=== PATIENT | female | born 1950 | race Caucasian/White ===

== ENCOUNTER → 2020-10-22 16:34 | Outpatient (CLI) | payer BC, SELFPAY ==
--- NOTE | 2020-10-22 16:39 | CT_ITS ---
STUDY: RIGHT LOWER EXTREMITY CT SCAN REASON FOR EXAM: Female, 69 years old. UNILATERAL PRIMARY OSTEOARTHRITIS RADIATION DOSAGE (If Supplied By Facility): CTDIvol = ( 18.76 ) mGy, DLP = ( 996.63 ) mGycm. Individualized dose optimization techniques were used for this CT.? TECHNIQUE: Axial multidetector CT scan of the right knee, right hip and right ankle. Coronal and sagittal reformatted images. COMPARISON: None. FINDINGS: No acute fracture line. No acute dislocation. No acute cortical destruction. Mild/moderate right hip osteoarthritis (coronal image 47 series 601) with joint space narrowing and subcortical cyst formation. Mild pubic symphysis arthrosis. Right knee mild medial joint space narrowing. Mild lateral joint space narrowing with 9 mm osteochondral lesion (coronal image 30 series 604) and minimal patellofemoral joint arthrosis. Normal proximal tibiofibular joint. Large volume knee joint effusion. No significant popliteal cyst. Moderate soft tissue swelling at the knee. Posterior joint space calcifications (axial image 260 series 2). Varicose veins. Mild ankle osteoarthritis with lateral talar dome osteochondral lesion (sagittal images 16 through 18 series 607). Visualized intra-abdominal/pelvic contents within normal limits given technique. No acute muscle abnormality. CT/Extremity Lower without Contra IMPRESSION: Right knee osteoarthritis predominating laterally with 9 mm osteochondral lesion Right knee large volume joint effusion and moderate soft tissue swelling Mild/moderate right hip osteoarthritis Mild right ankle osteoarthritis with talar dome osteochondral lesion Electronically Signed: Joey Li DO at 10:21 EDT Tel , Service support ,
== END ==
PROVIDERS: PCP Family Medicine; Referring Provider Physician Assistant; Visit Provider Physician Assistant
DX: M17.11 Unilateral primary osteoarthritis, right knee (principal)
CPT/HCPCS: 73700

== ENCOUNTER → 2020-10-31 15:58 | Outpatient (CLI) | payer BC, SELFPAY ==
--- NOTE | 2020-10-31 15:59 | EKG12_ITS ---
Test Reason : PRE-OP Blood Pressure : / mmHG Vent. Rate : 075 BPM Atrial Rate : 075 BPM P-R Int : 178 ms QRS Dur : 082 ms QT Int : 402 ms P-R-T Axes : 069 047 068 degrees QTc Int : 448 ms Normal sinus rhythm Normal ECG Confirmed by SHERYL KIDD, JU ([id number]), food expeditor ALMA LOPEZ ([id number]) on 11/04/2020 1:31:15 PM Referred By: Evan Shirley Confirmed By:WILL SAUCEDO MD
[2020-10-31 17:17] LABS: Hematocrit 38.7 % (37-47); Hemoglobin 12.4 g/dL (12.0-15.0); Mean Corpuscular Volume 93.7 fL (81-99); Mean Platelet Vol. 11.2 fl (6.2-12.0); Platelet Count 188 K/mm3 (150-450); RBC Distribution Width CV 12.1 % (11.6-14.6); RBC Distribution Width SD 41.9 fl (35.1-43.9); Red Blood Count 4.13 M/mm3 (4.2-5.4); White Blood Count 5.9 K/mm3 (4.4-11.0)
[2020-10-31 18:09] LABS: Anion Gap 5 (5-15); BUN 42 mg/dL (7-18); BUN/Creat Ratio 47.9 RATIO (10-20); Calcium,Total 9.3 mg/dL (8.5-10.1); Chloride 109 mmol/L (98-107); Creatinine, Serum 0.88 mg/dL (0.55-1.02); EST Glomerular Filtration Rate 68 mL/min (>60); Est Glom Filt Rate - Afr Amer 82 mL/min (>60); Glucose 106 mg/dL (74-106); Potassium 4.4 mmol/L (3.5-5.1); Sodium Level 142 mmol/L (136-145)
[2020-10-31 19:24] LABS: Probe Check PASS; Specimen Processing Control PASS
== END ==
PROVIDERS: PCP Family Medicine; Referring Provider Orthopaedic Surgery; Visit Provider Orthopaedic Surgery
DX: Z01.810 Encounter for preprocedural cardiovascular examination (principal); Z01.812 Encounter for preprocedural laboratory examination; Z20.822 Contact with and (suspected) exposure to COVID-19
CPT/HCPCS: 36415; 80048; 85027; 87635; 93005; C9803; U0002

== ENCOUNTER → 2020-11-07 | Outpatient (CLI) | payer BC, SELFPAY ==
--- NOTE | 2020-11-07 | KNEE_PTH ---
PATIENT: IDA DUFFY [facility] U#:[id number] AGE/SX: 69/F ROOM: RE11/07/[address]: Dr. Evan Shirley DO : 1950 BED: DIS: 11/07/2020 SPEC #: [id number] RECD: 11/07/20 14:54 STATUS: EDMUNDO REQ #: [id number] LEXUS: 11/07/20 00:[address]: Evan Shirley DEPT: SURGICAL PATHOLOGY RECD BY: Kostas Rosario ENTERED: 11/08/20 08:14 SP TYPE: TOTAL KNEE OTHR DR: Dr. Shonna Cummins MD [facility] Tissues: Knee, NOS Procedures: Decalcification bone/plaque Surgery Specimen Level IV HEADER OPERATION: Robotic-assisted right total knee arthroplasty PRE-OP DIAGNOSIS: Primary osteoarthritis right knee TISSUE SUBMITTED: Bone right knee MICROSCOPIC DIAGNOSIS Bone, right knee, total knee replacement/resection: Pieces of bone with degenerative osteoarthritic changes. Fibroadipose tissue, fibroconnective tissue and synovial tissue with moderate to marked reactive changes. CHRISTIE:colby 11/13/2020 MICROSCOPIC DESCRIPTION Slides are reviewed. GROSS DESCRIPTION Received is one container designated bone right knee. The specimen consists of multiple fragments of green-yellow bone measuring in aggregate 9 x 10 x 3 cm. Also present in the specimen container is a piece of soft tissue measuring 5 x 3 x 1.5 cm. A number of bony fragments contain articular surfaces consistent with tibial plateau and femoral condyle and displaying prominent osteophyte formation, eburnation, and bone erosion. Medicinal Chemist sections are submitted in two cassettes as follows: 1 - soft tissue, 2 - bone after decalcification. / CHRISTIE:colby 11/08/20 TC:5 [facility]: [id number], [id number]
== END | disposition home or self-care (01) ==
LOC: LABSPEC 15:18
PROVIDERS: PCP Family Medicine; Referring Provider Orthopaedic Surgery; Visit Provider Orthopaedic Surgery
DX: M17.11 Unilateral primary osteoarthritis, right knee (principal)
CPT/HCPCS: 88305; 88311